=== PATIENT | female | born 1985 | race Caucasian/White ===

== ENCOUNTER 2022-06-18 10:42 | Emergency (ER) | payer MEDICAID ==
[~2022-06-18] VITALS: Ht 160 cm; Wt 65.8 kg
[2022-06-18 10:54] VITALS: BP 126/85
[2022-06-18] MEDS ORDERED: SUD30 PO (14:01)
[2022-06-18] MEDS ORDERED: PROM118S5 PO (14:01)
[2022-06-18] MEDS ORDERED: BENZ-300 PO (14:01)
[2022-06-18] MEDS ORDERED: IBUP-2213 PO (14:01)
--- NOTE | 2022-06-18 14:30 | NUR ---
Patient discharged with v/s stable. Written and verbal after care instructions given and explained. Patient alert, oriented and verbalized understanding of instructions. Ambulatory with steady gait. All questions addressed prior to discharge. ID band removed. Patient advised to follow up with PMD. Rx of SUDAFED,MOTRIN given. Patient educated on indication of medication including possible reaction and side effects. Opportunity to ask questions provided and answered.
== END 2022-06-18 14:30 | disposition home or self-care (01) ==
LOC: MED 10:42
DX: J06.9 Acute upper respiratory infection, unspecified (principal); Z20.822 Contact with and (suspected) exposure to COVID-19
CPT/HCPCS: 87420; 99283